=== PATIENT | female | born 1975 | race African-American/Black ===

== ENCOUNTER 2018-05-25 11:28 | Observation (INO) ==
[2018-05-25] MEDS ORDERED: ALUM/MAG/SIMETH/LIDO VISC 1:1 30 ML BOTTLE PO STA (12:23)
[2018-05-25] MEDS ORDERED: NITROGLYCERIN 2% OINT 1 INCH/GM PACK TOP STA (12:23)
[2018-05-25] MEDS ORDERED: ASPIRIN 325 MG TABLET PO STA (12:23)
[2018-05-25] MEDS ORDERED: MORPHINE 4 MG/1 ML VIAL IV STA (12:23)
[2018-05-25] MEDS ORDERED: ONDANSETRON 4 MG/2 ML VIAL IV STA (12:23)
[2018-05-25] MEDS ORDERED: METOPROLOL TARTRATE 25 MG TABLET PO STA (12:23)
[2018-05-25 13:31] LABS: Basophils % 0.5 % (0.0-0.8); Eosinophils # 0.1 10*3/uL (0.0-0.87); Eosinophils % 1.4 % (0.00-10.9); Hematocrit 42.2 VOL% (35.7-47.0); Immature Granulocytes % 0.3 %; Immature Granulocytes Absolute 0.02 #; Lymphocytes # 1.1 10*3/uL (1.4-4.0); Lymphocytes % 18.5 % (21.3-54.2); Mean Corpuscular HGB Conc 30.8 GM/DL (32-36); Mean Corpuscular Hemoglobin 26 PG (27-34); Mean Corpuscular Volume 84.9 FL (87-102); Mean Platelet Volume 10.3 FL (9.6-12.0); Monocytes # 1.2 10*3/uL (0.11-0.8); Monocytes % 19.7 % (1.7-12.7); Neutrophils # 3.5 10*3/uL (1.4-7.4); Neutrophils % 59.6 % (38.7-73.9); Platelet Count 281 T/CUMM (130-400); Red Blood Count 4.97 MC/CUMM (3.8-5.5); Red Cell Distribution Width 14.8 % (9.3-17.3); White Blood Count 5.9 T/CUMM (4-12)
[2018-05-25 13:50] LABS: INR 0.9
[2018-05-25 13:52] LABS: Albumin 3.5 G/DL (3.4-5.0); Bilirubin,Total 1.9 MG/DL (0.2-1.0); Calcium 9.2 MG/DL (8.5-10.1); Osmolality,Calculated 276.4 MOS/KG (273-304); Potassium 4.1 MMOL/L (3.5-5.1); Total Protein 7.8 G/DL (6.4-8.3)
[2018-05-25] MEDS ORDERED: hydrALAZINE 20 MG/1 ML VIAL IV STA (14:27)
[2018-05-25] MEDS ORDERED: ENOXAPARIN 100 MG/ML SYRINGE SUBCUT STA (14:30)
[2018-05-25 15:06] LABS: Lymphocytes 25 % (20-55); Segmented Neutrophils 53 % (50-85); Total Cells Counted 100
[2018-05-25 15:07] LABS: Anisocytosis 1+
[2018-05-25 15:09] LABS: Polychromasia Slight
[2018-05-25 15:10] LABS: Microcytosis Slight
[2018-05-25] MEDS ORDERED: ONDANSETRON 4 MG TABLET PO PRN (15:35)
[2018-05-25] MEDS: amLODIPine 5 MG TABLET PO SCH (17:34)
[2018-05-25 20:30] LABS: Apearance,Urine CLEAR (Clear); Bacteria,Urine Occasional /HPF (Few); Bilirubin,Urine Negative (Negative); Blood, Urine Negative (Negative); Glucose,Urine (UA) Negative (Negative); Ketones,Urine Negative (Negative); Mucus,Urine Occasional /LPF (Occasional); Nitrite,Urine Negative (Negative); Protein,Urine Negative; RBC,Urine 9 /HPF (0-4); Squamous Epithelial Cell,Urine Occasional /HPF (0-10); Urine Color Yellow (Yellow); Urine Specific Gravity 1.013 (1.001-1.035); WBC,Urine 3 /HPF (0-6)
[2018-05-25 20:33] LABS: Barbiturates Screen,Urine Negative (Negative); Benzodiazepines Screen,Urine Negative (Negative); Cannabinoid Screen,Urine Negative (Negative); Opiate Screen,Urine Positive (Negative); Phencyclidine Screen,Urine Negative (Negative)
[2018-05-25] MEDS: NABUMETONE 500 MG TABLET PO SCH (20:36)
[2018-05-25] MEDS: ACETAMINOPHEN 325 MG TABLET PO PRN (20:36)
[2018-05-25] MEDS ORDERED: METHOTREXATE 2.5 MG TABLET PO SCH (21:00)
[2018-05-25] MEDS ORDERED: ONDANSETRON 4 MG/2 ML VIAL IV PRN (21:26)
[2018-05-26] MEDS: ACETAMINOPHEN 325 MG TABLET PO PRN ×2 (02:12→21:05)
[2018-05-26 04:41] LABS: Basophils % 0.3 % (0.0-0.8); Eosinophils # 0.1 10*3/uL (0.0-0.87); Eosinophils % 1.2 % (0.00-10.9); Hematocrit 41.3 VOL% (35.7-47.0); Hemoglobin 13.1 GM/DL (12.0-16.0); Immature Granulocytes % 0.3 %; Immature Granulocytes Absolute 0.02 #; Lymphocytes # 1.1 10*3/uL (1.4-4.0); Lymphocytes % 18.5 % (21.3-54.2); Mean Corpuscular HGB Conc 31.7 GM/DL (32-36); Mean Corpuscular Hemoglobin 27 PG (27-34); Mean Corpuscular Volume 84.3 FL (87-102); Mean Platelet Volume 10.4 FL (9.6-12.0); Monocytes % 17.1 % (1.7-12.7); Neutrophils # 3.6 10*3/uL (1.4-7.4); Neutrophils % 62.6 % (38.7-73.9); Platelet Count 290 T/CUMM (130-400); Red Cell Distribution Width 14.8 % (9.3-17.3); White Blood Count 5.7 T/CUMM (4-12)
[2018-05-26 05:09] LABS: Band Neutrophils 1 % (0-10); Eosinophils 2 % (0-10); Hypochromasia 1+; Lymphocytes 12 % (20-55); Microcytosis Slight; Platelet Estimate Adequate; Segmented Neutrophils 71 % (50-85); Total Cells Counted 100
[2018-05-26 05:11] LABS: Albumin 3.1 G/DL (3.4-5.0); Bilirubin,Total 2.2 MG/DL (0.2-1.0); Calcium 9.3 MG/DL (8.5-10.1); Osmolality,Calculated 273.7 MOS/KG (273-304); Potassium 4.1 MMOL/L (3.5-5.1); Risk Ratio 6.97; Total Protein 7.8 G/DL (6.4-8.3); VLDL CHOLESTEROL 18.4 MG/DL
[2018-05-26 05:17] LABS: Folate 15.4 NG/ML (5.4-24.0)
[2018-05-26] MEDS: amLODIPine 5 MG TABLET PO SCH (12:14)
[2018-05-26] MEDS: NABUMETONE 500 MG TABLET PO SCH ×2 (12:15→21:06)
[2018-05-26] MEDS: PANTOPRAZOLE 40 MG TABLET PO SCH (12:15)
[2018-05-26] MEDS: FOLIC ACID 1 MG TABLET PO SCH (12:15)
[2018-05-26] MEDS: ENOXAPARIN 40 MG/0.4 ML SYRINGE SUBCUT SCH (12:18)
[2018-05-27] MEDS: NABUMETONE 500 MG TABLET PO SCH (09:55)
[2018-05-27] MEDS: ENOXAPARIN 40 MG/0.4 ML SYRINGE SUBCUT SCH (09:58)
[2018-05-27] MEDS: amLODIPine 5 MG TABLET PO SCH (09:58)
[2018-05-27] MEDS: PANTOPRAZOLE 40 MG TABLET PO SCH (09:58)
[2018-05-27] MEDS: FOLIC ACID 1 MG TABLET PO SCH (09:58)
[2018-05-27 11:32] VITALS: BP 141/103
== END 2018-05-27 11:59 | disposition home or self-care (01) ==
LOC: N.ED 11:28 → N.EDINP 11:28 → SUATTDRO 15:28 → N.2W 16:00 → N.TELEN 17:57
PROVIDERS: ADMIT Internal Medicine; ATTEND Internal Medicine